=== PATIENT | female | born 1995 | race African-American/Black ===

== ENCOUNTER 2019-06-15 14:49 | Emergency (ER) | payer OTHER ==
[~2019-06-15] VITALS: Ht 167.6 cm; Wt 72.7 kg
[~2019-06-15 14:49] MED LIST: ACET500C5 PO; BACTDS PO; CIPR500T4 PO; DOXY-214 PO; FLUC150T PO; NITR-58 PO; PHEN-538 PO
[2019-06-15 14:52] VITALS: Ht 167.6 cm; Wt 72.7 kg
[2019-06-15 18:03] VITALS: BP 115/60; PULSE 80; RESP 18
== END 2019-06-15 18:05 | disposition home or self-care (01) ==
LOC: FTE 14:49
DX: N30.00 Acute cystitis without hematuria (principal); J45.909 Unspecified asthma, uncomplicated; N76.0 Acute vaginitis
CPT/HCPCS: 81001; 81025; 87086; 87210; 99283